=== PATIENT | female | born 1940 | race Caucasian/White ===

== ENCOUNTER 2022-01-08 22:25 | Emergency (ER) | payer OTHER, SELFPAY ==
[~2022-01-08] VITALS: Ht 160 cm; Wt 108.9 kg
[2022-01-08 22:25] VITALS: BP_SYST 132
--- NOTE | 2022-01-08 22:28 | NUR ---
Patient arrived in ER, BIB ambulance. Patient's skin is mottled and cold. Patient covered with Bear Hugger blanket and warm blankets.
[2022-01-08] MEDS ORDERED: ACET325T PO (23:06)
[2022-01-08] MEDS ORDERED: ACET-73 PO ×2 (23:07→23:09)
[2022-01-08] MEDS ORDERED: AMLO5TAB4 PO (23:10)
[2022-01-08] MEDS ORDERED: ALBMDI INH (23:10)
[2022-01-08] MEDS ORDERED: ASPI-1393 PO (23:11)
[2022-01-08] MEDS ORDERED: DONE10TA44 PO (23:11)
[2022-01-08] MEDS ORDERED: ATOR20TA64 PO (23:12)
[2022-01-08] MEDS ORDERED: VITD2000 PO (23:13)
[2022-01-08] MEDS ORDERED: FLUT1AER INH (23:14)
[2022-01-08] MEDS ORDERED: CLON-433 PO (23:15)
[2022-01-08] MEDS ORDERED: DOCU-156 PO (23:16)
[2022-01-08] MEDS ORDERED: KETAMINE HCL 500 MG/10 ML VIAL ONE (23:31)
[2022-01-08 23:39] LABS: HEMATOCRIT 35.4 % (36-48); HEMOGLOBIN 10.8 g/dL (12.0-16.0); MEAN CORPUSCULAR HEMOGLOBIN 28 pg (27-31); MEAN CORPUSCULAR HGB CONC 30 % (32-36); MEAN CORPUSCULAR VOLUME 91 fL (79.0-98.0); PLATELET COUNT (AUTO) 237 K/uL (130-430); RED BLOOD CELL COUNT(AUTO) 3.87 MIL/uL (4.2-6.2); RED CELL DISTRIBUTION WIDTH 17.3 % (9.0-15.0)
[2022-01-08] MEDS ORDERED: FURO-149 PO (23:42)
[2022-01-08] MEDS ORDERED: BISA10SU61 RC (23:42)
[2022-01-08] MEDS ORDERED: HYDR100T25 PO (23:43)
[2022-01-08] MEDS ORDERED: NITR-85 PO (23:44)
[2022-01-08] MEDS ORDERED: INSU100V9 SQ (23:44)
[2022-01-08] MEDS ORDERED: MOM PO (23:45)
[2022-01-08] MEDS ORDERED: MULT-1089 PO (23:46)
[2022-01-08 23:48] LABS: ANION GAP 25 (5-15); CALCIUM 9.2 mg/dL (8.4-11.0); CHLORIDE 96 mmol/L (98-107); CREATININE 6.02 mg/dL (0.55-1.30); GLUCOSE 218 mg/dL (70-99); POTASSIUM 5.6 mmol/L (3.5-5.1); SODIUM SERUM 133 mmol/L (136-145)
--- NOTE | 2022-01-08 23:54 | NUR ---
Notified Dr. Gavin of elevated wbc [id number].
[2022-01-08] MEDS ORDERED: L.RH1CAP PO (23:56)
[2022-01-08] MEDS ORDERED: SENN8.6T19 PO (23:57)
[2022-01-09] LABS: ALANINE AMINOTRANSFERASE 11 U/L (12-78); ALBUMIN 1.7 g/dL (3.4-4.8); ASPARTATE AMINOTRANSFERASE 23 U/L (10-37); FREE T4 (FREE THYROXINE) 0.9 ng/dl (0.8-1.5); TOTAL BILIRUBIN 0.7 mg/dL (0.0-1.0)
[2022-01-09] MEDS ORDERED: SSNOVOLOG SUBCUT (00:10)
[2022-01-09 00:23] LABS: INR 1.9 (0.8-1.2); PROTHROMBIN TIME 19.4 SECS (9.5-12.5)
[2022-01-09 00:25] LABS: UREA NITROGEN, BLOOD 155 mg/dL (8-21)
--- NOTE | 2022-01-09 00:50 | NUR ---
After several attempts to start IV line, Dr. Gavin started central line in Right internal jugular vein. Patient's HR slowed to 32 BPM, 57/21 BP, at 0100 hrs. Charge Nurse Jolene RN gave Atropine per Dr. Gavin verbal orders. Patient's HR increased to 46 BPM. At 0106 hrs, patient's rhythm became asystole. Code called immediately, CPR started, Pulse checks no pulse found, medications given, see code blue sheet. At 0200 hrs, patient was pronounced by Dr. Leslye COLON. [facility] called at 0245 hrs, [facility] stated they "are not moving forward." Reference number for [facility] is [id number]. [place] [employer]im[employer] Supervisor called at 0333 hrs, [place] released patient's body. Attempted four times to call first [facility] listed at phone number [phone], Val Maddox, but no answer. Called patient's son/second [facility]/emergency contact at phone number [phone], Hardik Manuel, and informed Hardik Manuel, who verbally acknowledged understanding. Hardik Manuel stated that he "does not know if there is a mortuary listed." Called Robe Ramos LVN/Charge Nurse at [facility], who stated that there "is not a mortuary listed on the facility chart." Dr. Taya Banks RN called at [phone], to inform her that patient was pronounced at 0200 hrs, left message with exchange to call [facility] ER back. Addendum: 01/09/22 at 0452 by [email or web address] After several attempts to start IV line, Dr. Gavin started central line in Right internal jugular vein. Patient's HR slowed to 32 BPM, 57/21 BP, at 0100 hrs. Charge Nurse Jolene COREY gave Atropine per Dr. Gavin verbal orders. Patient's HR increased to 46 BPM.
[2022-01-09] MEDS ORDERED: NOREPINEPHRINE 4 MG/4 ML VIAL IV ONE (01:08)
[2022-01-09] MEDS ORDERED: CEFEPIME 1 GM/VIAL (MAXIPIME) ONE (01:37)
[2022-01-09] MEDS ORDERED: CEFEPIME 2 GM in D5W 100 ML IV ONE (01:45)
[2022-01-09 03:53] LABS: LYMPHOCYTES % (MANUAL) 3 % (20-46); MONOCYTES % (MANUAL) 1 % (0-11)
[2022-01-09 03:54] LABS: BASOPHILS % (MANUAL) 0 % (0-2); EOSINOPHILS % (MANUAL) 0 % (0-7)
--- NOTE | 2022-01-09 04:52 | NUR ---
At 0106 hrs, patient's rhythm became asystole. Code called immediately, CPR started, Pulse checks no pulse found, medications given, see code blue sheet. At 0200 hrs, patient was pronounced by Dr. Leslye COLON. [facility] called at 0245 hrs, [facility] stated they "are not moving forward." Reference number for [facility] is [id number]. [place] Metal Coater Operator called at 0333 hrs, [place] released patient's body. Attempted four times to call first [facility] listed at phone number [phone], Val Maddox, but no answer. Called patient's son/second NOK/emergency contact at phone number [phone], Hardik Manuel, and informed Hardik Manuel, who verbally acknowledged understanding. Hardik Manuel stated that he "does not know if there is a mortuary listed." Called Robe Ramos LVN/Charge Nurse at [facility], who stated that there "is not a mortuary listed on the facility chart." Dr. Taya Banks RN called at [phone], to inform her that patient was pronounced at 0200 hrs, left message with exchange to call [facility] ER back. Addendum: 01/09/22 at 0459 by [email or web address] At 0106 hrs, patient's rhythm became asystole. Code called immediately, CPR started, Pulse checks no pulse found, medications given, see code blue sheet. At 0200 hrs, patient was pronounced by Dr. Leslye COLON. [facility] called at 0245 hrs, [facility] stated they "are not moving forward." Reference number for [facility] is [id number]. [place] Metal Coater Operator called at 0333 hrs, [place] released patient's body. At 0258 hrs attempted four times to call first [facility] listed at phone number [phone], Val Maddox, but no answer. At 0300 hrs, called patient's son/second [facility]/emergency contact at phone number [phone], Hardik Manuel, and informed Hardik Manuel, who verbally acknowledged understanding. Hardik Manuel stated that he "does not know if there is a mortuary listed." Called Robe Ramos LVN/Charge Nurse at [facility], who stated that there "is not a mortuary listed on the facility chart." Dr. Taya Banks RN called at [phone], to inform her that patient was pronounced at 0200 hrs, left message with exchange to call [facility] ER back.
--- NOTE | 2022-01-09 05:00 | NUR ---
Military Science Instructor Meg COREY informed of patient and all appropriate family, and institutions have been notified. Military Science Instructor Meg COREY verbalized understanding, no further questions.
--- NOTE | 2022-01-09 06:46 | NUR ---
Patient placed in bodybag, post mortem care completed, security took patient to holding area.
== END 2022-01-09 02:20 ==
LOC: SED 22:25
DX: I46.9 Cardiac arrest, cause unspecified (principal); J96.00 Acute respiratory failure, unspecified whether with hypoxia or hypercapnia; N17.9 Acute kidney failure, unspecified; E87.2 Acidosis; Z88.0 Allergy status to penicillin; Z79.899 Other long term (current) drug therapy
CPT/HCPCS: 31500; 36415; 36556; 71045; 80053; 82803; 83605; 83880; 84439; 84443; 84484; 85007; 85027; 85610; 85730; 87040; 92950; 93005; 96365; 99291; J0692; 94002; 99285